=== PATIENT | male | born 1995 | race Caucasian/White ===

== ENCOUNTER 2023-12-09 01:15 | Emergency (ER) | payer SELFPAY ==
[~2023-12-09] VITALS: Ht 162.6 cm; Wt 65.8 kg
[2023-12-09 01:19] VITALS: BP 109/72; PULSE 72; RESP 18; TEMP 97.4; O2SAT 98
[2023-12-09] MEDS: ALBUTEROL SULFATE/IPRATROPIU 3 ML SOL IH ONE (01:29)
[2023-12-09 01:30] VITALS: PULSE 83; RESP 22; O2SAT 92
[2023-12-09] MEDS ORDERED: ALBU0.0912 IH (01:38)
[2023-12-09 01:42] VITALS: O2SAT 97
[2023-12-09 01:49] VITALS: PULSE 67; RESP 18; O2SAT 97
== END 2023-12-09 01:49 | disposition home or self-care (01) ==
LOC: MED 01:15
DX: J45.909 Unspecified asthma, uncomplicated (principal); Z79.899 Other long term (current) drug therapy
CPT/HCPCS: 99283; J7030